=== PATIENT | female | born 1940 | race Caucasian/White ===

== ENCOUNTER 2021-03-10 07:14 | Emergency (ER) | payer OTHER ==
[~2021-03-10] VITALS: Ht 160 cm; Wt 68.0 kg
[~2021-03-10 07:14] MED LIST: ASPI81CH PO; CALCA500S6; CALCIUM PO; CEPH250A PO; CHOL10002; CHOL10002 PO; FERR325 PO; LETR2.5; METO25ER PO; METO50ER PO; PANT40 PO; PRAV20 PO
[2021-03-10] MEDS ORDERED: HYDR1TAB94 PO (11:01)
== END 2021-03-10 11:30 | disposition home or self-care (01) ==
LOC: ER 07:14
DX: M25.561 Pain in right knee (principal); M79.651 Pain in right thigh; I25.2 Old myocardial infarction; I25.10 Atherosclerotic heart disease of native coronary artery without angina pectoris; Z86.718 Personal history of other venous thrombosis and embolism; Z91.048 Other nonmedicinal substance allergy status; Z79.82 Long term (current) use of aspirin; Z79.899 Other long term (current) drug therapy
CPT/HCPCS: 73502; 93926; 93971; 99284-25; A9270

== ENCOUNTER 2024-05-31 10:14 | Day surgery (SDC) | payer OTHER ==
[~2024-05-31] VITALS: Ht 160 cm; Wt 70.2 kg
[~2024-05-31 10:14] MED LIST changes: +HYDR1TAB94 PO; +Methylene Blue 1% 100 MG/10 ML VIAL ONE
[2024-05-31] MEDS ORDERED: Lactated Ringer's 1,000 ML IV ONE (11:02)
[2024-05-31] MEDS ORDERED: propofoL 20 ML IV ONE (11:19)
[2024-05-31] MEDS ORDERED: CeFAZolin Sodium 2,000 MG VIAL ONE (11:37)
[2024-05-31] MEDS ORDERED: FentaNYL Citrate 50 MCG/ML 2 ML Injection ONE ×2 (12:09→14:09)
[2024-05-31] MEDS ORDERED: Ondansetron HCl 2 MG / ML 2ML Vial ONE (12:23)
[2024-05-31] MEDS ORDERED: Dexamethasone Sod Phos 10 MG/ML 1ML VIAL ONE (12:23)
[2024-05-31] MEDS ORDERED: Glycopyrrolate 0.2 MG/ML 5ML VIAL ONE (12:24)
[2024-05-31] MEDS ORDERED: ePHEDrine Sulfate 50 MG/ML 1ML Injection ONE (12:25)
[2024-05-31] MEDS ORDERED: Bupivacaine 0.5% HCl 5 MG/ML 30MLVIAL XX ONE (12:44)
--- NOTE | 2024-05-31 13:30 | NUR ---
05/31/24 1330 Zeynep Holt FROM RADIOLOGY CALLED, PER DR. ELEAZAR MARI LOOKS GOOD, [id number]
--- NOTE | 2024-05-31 14:23 | NUR ---
05/31/24 1423 Viktor Castro FENTANYL 25MCG IV GIVEN AT 1415 FOR 10/10 LEFT BREAST PAIN
[2024-05-31] MEDS ORDERED: HYDROcodone 5-APAP 325 TAB ONE (14:45)
[2024-05-31 14:47] VITALS: BP 153/64
--- NOTE | 2024-05-31 15:04 | NUR ---
05/31/24 Krystal4 Viktor Castro 1450: CRISTINA 325 PAIN MED ADMINISTERED FOR PAIN OF 9/10 ON LEFT BREAST/NIPPLE. ICE PACK GIVEN. -JXO
== END 2024-05-31 15:36 | disposition home or self-care (01) ==
LOC: ORSCSDS 10:14
PROVIDERS: Surgery
PROC: 0HBU0ZZ Excision of Left Breast, Open Approach (ICD-10-PCS; principal; 2024-05-31 11:30)
PROC: 07B60ZX Excision of Left Axillary Lymphatic, Open Approach, Diagnostic (ICD-10-PCS; principal; 2024-05-31 11:30)
DX: C50.212 Malignant neoplasm of upper-inner quadrant of left female breast (principal); Z17.421 Hormone receptor negative with human epidermal growth factor receptor 2 negative status; Z85.3 Personal history of malignant neoplasm of breast; Z85.028 Personal history of other malignant neoplasm of stomach; I10 Essential (primary) hypertension; E78.5 Hyperlipidemia, unspecified; I25.10 Atherosclerotic heart disease of native coronary artery without angina pectoris; K21.9 Gastro-esophageal reflux disease without esophagitis; Z79.82 Long term (current) use of aspirin; Z79.899 Other long term (current) drug therapy; Z87.891 Personal history of nicotine dependence
CPT/HCPCS: 38792; 76098; 88307; 88341; 88342; A9270; A9520; J0690; J1100; J2405; J2704; J3010; J7120; Q9968